=== PATIENT | female | born 2005 | race Two or more races ===

== ENCOUNTER 2024-04-01 12:06 | Emergency (ER) | payer MEDICAID ==
[~2024-04-01] VITALS: Ht 167.6 cm; Wt 60.0 kg
--- NOTE | 2024-04-01 13:22 | ED.PDOC ---
Eye-HPI HPI Comments 18 Y F presents to the ED, with CC of sore throat. Patient states, that she has been experiencing sore throat x1 wk with associated symptoms of mucus, cough, shortness of breath, fever, and body aches. Patient relays, that she has had no relief with at home medications. Patient denies, chest pain, nausea, vomiting, diarrhea, or headache. Chief Complaint: Sore Throat Time Seen by MD: 13:00 Primary Care Provider: NONE Reviewed Notes: Nurses Notes, Medications, Allergies Allergies: Coded Allergies: NO KNOWN ALLERGIES (Unverified , 10/31/11) Home Meds No Active Prescriptions or Reported Meds Mode of Arrival: Ambulatory Timing: Weeks Duration: Since onset Prehospital treatment: None Modifying factors: Nothing Associated signs and symptoms: Discharge, Fever, Sore Throat Past Medical History PAST MEDICAL HISTORY: Denies Surgical History: Denies all surgeries SMELTER OPERATOR History: Denies all SMELTER OPERATOR Hx Family History Family History: Reviewed,noncontributory to illness, No family hx of DM, No family hx of HTN Social History Smoker: Non-Smoker Alcohol: Denies ETOH Use Drugs: Denies Drug Use Lives In: Home Constitutional: denies: chills, diaphoresis, fatigue, fever, malaise, sweats, weakness, others EENTM: reports: nose congestion; denies: blurred vision, double vision, ear bleeding, ear discharge, ear drainage, ear pain, ear ringing, eye pain, eye redness, hearing loss, mouth pain, mouth swelling, nasal discharge, nose bleeding, nose pain, photophobia, tearing, throat pain, throat swelling, voice changes, others Respiratory: reports: cough, shortness of breath Cardiovascular: denies: chest pain, dizzy spells, diaphoresis, Dyspnea on exertion, edema, irregular heart beat, left arm pain, lightheadedness, palpitations, PND, syncope, others Gastrointestinal: denies: abdomen distended, abdominal pain, blood streaked bowels, constipated, diarrhea, dysphagia, difficulty swallowing, hematemesis, melena, nausea, poor appetite, poor fluid intake, rectal bleeding, rectal pain, vomiting, others Genitourinary: denies: abnormal vagina bleeding, burning, dyspareunia, dysuria, flank pain, frequency, hematuria, incontinence, pain, , vagina discharge, urgency, others Neurological: denies: dizziness, fainting, headache, left sided numbness, left sided weakness, numbness, paresthesia, pre-existing deficit, right sided numbness, right sided weakness, seizure, speech problems, tingling, tremors, weakness, others Musculoskeletal: denies: back pain, gout, joint pain, joint swelling, muscle pain, muscle stiffness, neck pain, others Integumetry: denies: bruises, change in color, change in hair/nails, dryness, laceration, lesions, lumps, rash, wounds, others Allergic/Immunocompromised: denies: Difficulty Healing, Frequent Infections, Hives, Itching, others Hematologic/Lymphatic: denies: anemia, blood clots, easy bleeding, easy bruising, swollen glands, others Endocrine: denies: excessive hunger, excessive sweating, excessive thirst, excessive urination, flushing, intolerance to cold, intolerance to heat, unexplained weight gain, unexplained weight loss, others Psychiatric: denies: anxiety, bipolar disorder, depression, hopeless, panic disorder, schizophrenia, sleepless, suicidal, others All Other Systems: Reviewed and Negative Physical Exam General Appearance: Moderate Distress, Normal HEENT: Normal ENT Inspection, Pharyngeal Erythema, TMs Normal Neck: Full Range of Motion, Non-Tender, Normal, Normal Inspection Respiratory: Chest Non-Tender, Lungs Clear, No Accessory Muscle Use, No Respira tory Distress, Normal Breath Sounds Cardiovascular: No Edema, No JVD, No Murmur, No Gallop, Normal Peripheral Pulses, Regular Rate/Rhythm Breast Exam: Deferred Gastrointestinal: No Organomegaly, Non Tender, No Pulsatile Mass, Normal Bowel Sounds, Soft Genitalia: Deferred Pelvic: Deferred Rectal: Deferred Extremities: No calf tenderness, Normal capillary refill, Normal inspection, Normal range of motion, Non-tender, No pedal edema Musculoskeletal : Apperance: Normal Neurologic: Alert, graphic arts instructor II-XII nml as Tested, No Motor Deficits, Normal Affect, Normal Mood, No Sensory Deficits Cerebellar Function: Normal Reflexes: Normal Skin: Dry, Normal Color, Warm Peripheral Pulses: 3+ Radial (R), 3+ Radial (L) Lymphatic: No Adenopathy Was a procedure done? Was a procedure done?: No EENT DIFF Eye: Bacterial, Chlamydial, Viral Sore Throat: Epiglottitis, Pharyngitis, URI X-Ray, Labs, Meds, VS Vital Signs Date Time Temp Pulse Resp B/P (MAP) Pulse Ox O2 Delivery O2 Flow Rate FiO2 04/01/24 12:13 97.8 107 18 103/59 (74) 100 Patient alert. Complaining of sore throat. No leg swelling. Vitals stable. Answering all questions. Saturation pristine on room air. She is anxious. No discoloration. Clinical examination heart rate within normal limits Reviewed her history. Was given prescription of amoxicillin antibiotic. Explained to the patient. Was told to follow up with her primary care physician. Was told to come back if there is any problem. Time of 1ST Reevaluation: 13:30 Reevaluation 1ST: Improved Time of 2ND Reevaluation: 15:59 Reevaluation 2ND: Improved Patient Education/Counseling: Diagnosis, Treatment Family Education/Counseling: No Family Present Additional Information The following tests were ordered, and results were reviewed by me: I reviewed and agreed with the following test results read by other providers: I discussed treatment and results with medical personnel. Departure 1 Departure Time of Disposition: 16:00 Impression: Primary Impression: Pharyngitis Qualified Codes: J02.9 - Acute pharyngitis, unspecified Disposition: HOME / SELF CARE / HOMELESS Condition: Good e-Prescriptions Amoxicillin Trihydrate (Amoxicillin) 500 Mg Cap 1 CAP PO TID for 7 Days, #21 CAP Prov: BAUDILIO MAC MD 04/01/24 Discharged With: Self Critical Care Note Critical Care Time?: No Stability Stability form required: No Heart Score Heart Score: Heart Score Response (Comments) Value History N/A 0 EKG N/A 0 Age N/A 0 Risk Factors N/A 0 Troponin N/A 0 Total 0 I personally scribed for BAUDILIO MAC MD ([email or web address]) on 04/01/24 at 13:22. Electronically submitted by Yoana Leyva ([employer]). I personally scribed for BAUDILIO MAC MD ([email or web address]) on 04/01/24 at 13:23. Electronically submitted by Yoana Leyva ([employer]). I personally scribed for BAUDILIO MAC MD ([email or web address]) on 04/01/24 at 13:26. Electronically submitted by Yoana Leyva ([employer]). BAUDILIO MAC MD Apr 01, 2024 13:22
[2024-04-01] MEDS ORDERED: AMOX500C2 PO (16:01)
[2024-04-01 16:14] VITALS: BP 100/62; PULSE 100; RESP 20; TEMP 98.6; O2SAT 99
[2024-04-01] MEDS: cefTRIAXone SOD 1,000 MG VL IM ONE (16:25)
== END 2024-04-01 16:28 | disposition home or self-care (01) ==
LOC: ER 12:06
DX: J02.9 Acute pharyngitis, unspecified (principal); R05.9 Cough, unspecified; R06.02 Shortness of breath
CPT/HCPCS: 96372; 99283; J0696